=== PATIENT | male | born 1965 | race Caucasian/White ===

== ENCOUNTER 2018-01-12 13:00 | Outpatient (CLI) | payer MEDICAID ==
[2018-01-12 19:00] LABS: BASOPHILS % (AUTO) 0.5 %; EOSINOPHILS # (AUTO) 0.2 10^3/uL (0.0-0.7); EOSINOPHILS % (AUTO) 2.4 %; HGB - HEMOGLOBIN 15.1 g/dL (14.0-18.0); LYMPHOCYTES # (AUTO) 2.6 10^3/uL (1.5-3.5); LYMPHOCYTES % (AUTO) 26.3 %; MEAN CORPUSCULAR HGB CONC 33.4 g/dL (32.0-36.0); MEAN CORPUSCULAR VOLUME 95.7 fL (80.0-94.0); MEAN PLATELET VOLUME 9.4 fL (7.4-11.4); MONOCYTES # (AUTO) 0.5 10^3/uL (0.0-1.0); MONOCYTES % (AUTO) 5.3 %; NEUTROPHILS # (AUTO) 6.6 10^3/uL (1.5-6.6); NEUTROPHILS % (AUTO) 65.5 %; PLT - PLATELET COUNT 344 10^3/uL (130-450); RED BLOOD COUNT 4.71 10^6/uL (4.70-6.10); RED CELL DISTRIBUTION WIDTH 12.9 % (12.0-15.0)
[2018-01-12 19:20] LABS: BUN - BLOOD UREA NITROGEN 21 mg/dL (6-20); CALCIUM 9.2 mg/dL (8.5-10.3); CARBON DIOXIDE - CO2 26 mmol/L (21-32); CHLORIDE 102 mmol/L (101-111); CHOL/HDL RATIO 4.9 (<5.0); CHOLESTEROL 202 mg/dL; CREATININE 0.7 mg/dL (0.6-1.2); GFR - MDRD 118 (>89); GLUCOSE 107 mg/dL (70-100); HDL CHOLESTEROL 41 mg/dL; LDL CHOLESTEROL,CALCULATED 146 mg/dL; LDL/HDL RATIO 3.6 (<3.6); SODIUM 136 mmol/L (135-145); VLDL CHOLESTEROL 15 mg/dL
== END 2018-01-12 13:01 | disposition home or self-care (01) ==
LOC: LAB.N 13:00
PROVIDERS: ATTEND Physician Assistant Medical
DX: R03.0 Elevated blood-pressure reading, without diagnosis of hypertension (principal); Z00.00 Encounter for general adult medical examination without abnormal findings; F17.210 Nicotine dependence, cigarettes, uncomplicated
CPT/HCPCS: 36415; 80048; 80061; 83721; 84443; 85025

== ENCOUNTER 2018-09-17 09:55 | Emergency (ER) | payer MEDICAID ==
--- NOTE | 2018-09-17 11:31 | ED Physician Documentation ---
PD HPI TRUNK INJURY - Stated complaint Stated Complaint: RIB PX/GLF - Chief complaint Chief Complaint: Trauma Ch/Bk - History obtained from History obtained from: Patient - History of Present Illness Location: Left chest Type of injury: Fall Timing - onset: Yesterday Timing - duration: Days (1) Timing - details: Abrupt onset, Still present Quality: Pain, Spasm, Sharp Worsened by: Moving, Palpating Associated symtptoms: No: Weakness, Numbness, Tingling, Swelling, Discoloration, Feel faint, Syncope Where injury occured: Home Similar symptoms before: Has not had sx before Recently seen: Not recently seen - Additional information Additional information: 53 y/o male tripped up one step going in to his trailer and landed on his left chest wall. He has pain to the left chest wall and a small bruise. He has pain with inspiration and had a hard time sleeping last night. Review of Systems Constitutional: denies: Fever, Chills, Myalgias Eyes: denies: Decreased vision Ears: denies: Ear pain Nose: denies: Congestion Throat: denies: Sore throat Cardiac: reports: Chest pain / pressure. denies: Palpitations, Pedal edema, Calf pain Respiratory: denies: Dyspnea, Cough, Wheezing GI: denies: Abdominal Pain, Nausea, Vomiting : denies: Dysuria, Frequency Skin: denies: Rash Musculoskeletal: denies: Neck pain, Back pain, Extremity pain PD PAST MEDICAL HISTORY - Past Medical History Psych: Depression - Past Surgical History Past Surgical History: No - Present Medications Home Medications: Ambulatory Orders Medication Instructions Recorded Confirmed RX: HYDROcod/ACETAM 5/325 [[place] 1 - 2 ea PO Q6H PRN #15 tablet 09/17/18 5/325] - Allergies Allergies/Adverse Reactions: Allergies Allergy/AdvReac Type Severity Reaction Status Date / Time No Known Drug Allergies Allergy Verified 09/17/18 10:09 - Social History Does the pt smoke?: Yes Smoking Status: Current every day smoker Does the pt drink ETOH?: Yes Does the pt have substance abuse?: No - Immunizations Immunizations are current?: Yes Immunizations: TDAP >10years/unknown PD ED PE NORMAL - Vitals Vital signs reviewed: Yes (tachy and hypertensive ) - General General: Alert and oriented X 3, Well developed/nourished - HEENT HEENT: Atraumatic, PERRL, EOMI - Neck Neck: Supple, no meningeal sign, No bony TTP - Cardiac Cardiac: No murmur, Other (tachy to 120) - Respiratory Respiratory: No respiratory distress, Clear bilaterally, Other (There is specific tenderness to the lateral chest wall posteriorly on the left side and there is a small linear bruise to the area. There is no crepitance. ) - Abdomen Abdomen: Soft, Non tender - Back Back: No CVA TTP, No spinal TTP - Derm Derm: Normal color, Warm and dry, No rash - Extremities Extremities: No deformity, No edema - Neuro Neuro: Alert and oriented X 3, waredresser 2-12 intact, No motor deficit, No sensory deficit, Normal speech Eye Opening: Spontaneous Motor: Obeys Commands Verbal: Oriented GCS Score: 15 - Psych Psych: Normal mood, Normal affect Results - Vitals Vitals: Vital Signs - 24 hr 09/17/18 09/17/18 10:06 11:41 Temperature 36.6 C Heart Rate 122 H 116 H Respiratory 14 19 Rate Blood Pressure 210/121 H 193/113 H O2 Saturation 98 99 Oxygen O2 Source Room air - Rads (name of study) chest with ribs Radiology: Prelim report reviewed (Impression: 1. Fractures of left posterior lateral 10th and possibly also the 11th ribs. Slight elevation of the left hemidiaphragm with hazy left basilar opacity, which may represent atelectasis given the left-sided rib fractures. No pleural effusion or pneumothorax demonstrated.), EMP read indepedently, See rad report Procedures - FAST exam (time) 1114 FAST exam: No: Free fluid RUQ, Free fluid LUQ, Free fluid suprapubic, Pericardial effusion PD MEDICAL DECISION MAKING - ED course Complexity details: reviewed results, re-evaluated patient, considered differential, d/w patient ED course: 53 y/o male with a history of alcohol use has had a fall up the steps into his trailer and now has pain in his left side. There is a broken rib and no evidence of internal bleeding on FAST exam. He arrived with a rapid heart rate and high blood pressure and I began to inquire about this and the patient requested to go home. I did discuss with him alcohol withdrawal and rapid heart rate and elevated blood pressure and he acknowledged alcohol use and that he had quit but he was vague about when. He continued to insist on going home and he left with a heart rate in the 110 range. I suspect this is related to alcohol withdrawal. Departure - Departure Disposition: 01 Home, Self Care Clinical Impression: Contusion of chest wall, Rib fracture Condition: Stable Instructions: ED Contusion Vs Minor Fx Rib Follow-Up: Maximiliano Dawkins PA-C [Primary Care Provider] - Prescriptions: RX: HYDROcod/ACETAM 5/325 [[place] 5/325] 1 - 2 ea PO Q6H PRN #15 tablet PRN Reason: Pain Discharge Date/Time: 09/17/18 12:17
[2018-09-17 11:42] VITALS: BP 193/113
--- NOTE | 2018-09-17 11:51 | XRAY Report ---
Reason: left postlat contusion Procedure Date: 09/17/2018 Accession Number: [id number] / [id number] Procedure: XR - Ribs w/PA Chest LT CPT Code: FULL RESULT: EXAM: LEFT RIB RADIOGRAPHY EXAM DATE: 09/17/2018 11:24 AM. CLINICAL HISTORY: Left posterolateral contusion. COMPARISON: None. TECHNIQUE: 1 view of the chest and 2 views of the ribs. FINDINGS: Bones: There appear to be fractures of the left postero-lateral 10th and possibly also the 11th ribs. Lungs: There is slight elevation in the left hemidiaphragm with hazy left basilar opacity. Lungs are otherwise clear. No pleural effusion or pneumothorax. Mediastinum: Heart and mediastinal contours are unremarkable. Other: None. IMPRESSION: 1. Fractures of the left posterolateral 10th and possibly also the 11th ribs. 2. Slight elevation of the left hemidiaphragm with hazy left basilar opacity, which may represent atelectasis given the left-sided rib fractures. 3. No pleural effusion or pneumothorax demonstrated. [facility]
== END 2018-09-17 12:17 | disposition home or self-care (01) ==
LOC: ED 09:55
DX: S20.212A Contusion of left front wall of thorax, initial encounter (principal); S22.32XA Fracture of one rib, left side, initial encounter for closed fracture; W01.10XA Fall on same level from slipping, tripping and stumbling with subsequent striking against unspecified object, initial encounter; F17.200 Nicotine dependence, unspecified, uncomplicated
CPT/HCPCS: 99283